=== PATIENT | male | born 1970 | race Caucasian/White ===

== ENCOUNTER 2016-11-13 16:06 | Emergency (ER) | payer OTHER, BC ==
[~2016-11-13] VITALS: Ht 177.8 cm; Wt 90.2 kg
[~2016-11-13 16:06] MED LIST: BACTRIM,SEPT1 TABLET PO; BENTYL20 MG PO; Bactrim,Septra DS 80 PO; CALCIUM 600 +1 EA11 PO; CALTRATE 6001 TABLE1 PO; CALTRATE PLUS1 EACH PO; CELEBREX200 MG PO; CHOLESTYRAMINE L4 GM PO; COREG CR40 MG PO; Ceftin PO; DAILY VALUE1 EACH PO; DAILY VITAMIN1 EAC8 PO; DILAUDID4 MG PO; EFFEXOR XR150 MG PO; EFFEXOR XR75 MG PO; ENDOCET 5-3251 EACH PO; EXALGO12 MG PO; EXALGO16 MG; EXALGO8 MG PO; Effexor PO; FIBER500 MG PO; FLEXERIL10 MG PO; FLOMAX0.4 MG PO; FORTAMET1000 M1 PO; HYDROCODON-ACE1 EAC7 PO; KEFLEX500 MG PO; LIPITOR20 MG PO; METFORMIN HCL500 M1 PO; Mylicon,Mylanta Gas, PO; NAPROSYN500 MG PO; NORCO 5/3251 TABLET PO; OMEPRAZOLE40 M1 PO; ONDANSETRON ODT4 MG PO; OPANA ER20 MG PR; Opana ER PO; PERCOCET 5/31 TABLET PO; PROMETHAZINE HC25 M1 PO; RESTORIL7.5 MG PO; ROXICODONE5 MG PO; SUCRALFATE1 GM PO; TYLENOL REGULA325 MG PO; ULTRAM; ULTRAM50 MG PO; VENLAFAXINE HC150 M1 PO; VIBRAMYCIN100 MG PO; VICODIN,LORT1 TABLET PO; ZOFRAN ODT4 MG PO; ZOFRAN4 MG PO
[2016-11-13 17:54] LABS: HEMATOCRIT 40.5 % (38.0-50.0); MCH 32.4 PG (29.0-34.0); MCHC 33.8 G/DL (30.0-36.0); MCV 95.7 FL (86-99); MEAN PLAT.VOLUME 10.1 uM^3 (9.0-12.4); PLATELET COUNT 203 K/uL (156-360); RBC DIS.WIDTH-CV 12.1 % (11.8-14.6); RBC DIS.WIDTH-SD 42.7 % (39-53); RED BLOOD COUNT 4.23 M/uL (4.00-5.50); WHITE BLOOD COUNT 6.7 K/uL (4.1-10.2)
[2016-11-13 18:04] LABS: CHLORIDE 109 mEq/L (99-109); POTASSIUM 4.8 mEq/L (3.7-5.4); SODIUM 144 mEq/L (136-147)
[2016-11-13 18:05] LABS: GLUCOSE 90 mg/dL (70-99)
[2016-11-13 18:07] LABS: ANION GAP 9 MEQ/L (2-14)
[2016-11-13 18:09] LABS: GFR ESTIMATE (CALCULATED) > 59 mL/min/
[2016-11-13 18:10] LABS: UREA NITROGEN (BUN) 15 mg/dL (9-23)
[2016-11-13 18:16] LABS: TROP-I INTERPRETATION NEGATIVE; TROPONIN-I < 0.01 ng/mL (0.0-0.30)
[2016-11-13 18:45] LABS: ADD MIUA? YES; BILIRUBIN NEGATIVE; BLOOD NEGATIVE; COLOR YELLOW ((YELLOW)); GLUCOSE (STRIP) NEGATIVE; KETONES 5; LEUKOCYTES TRACE; NITRITE NEGATIVE; PROTEIN (STRIP) NEGATIVE; SPECIFIC GRAVITY 1.018 (1.000-1.030)
[2016-11-13 18:53] LABS: AMPHETAMINE NEGATIVE (500 ng/mL); BARBITURATES NEGATIVE (200 ng/mL); BENZODIAZEPINES NEGATIVE (150 ng/mL); COCAINE NEGATIVE (150 ng/mL); INTERNAL CONTROLS VALID? YES; METHADONE NEGATIVE (200 ng/mL); METHAMPHETAMINE NEGATIVE (500 ng/mL); OPIATES (MORPHINE) NEGATIVE (100 ng/mL); OXYCODONE NEGATIVE (100 ng/mL); PHENCYCLIDINE NEGATIVE (25 ng/mL); PROPOXYPHENE NEGATIVE (300 ng/mL); THC CANNABINOIDS NEGATIVE (50 ng/mL); TRICYCLIC ANTIDEPRESSANTS NEGATIVE (300 ng/mL)
[2016-11-13 19:16] LABS: BACTERIA RARE /HPF; EPITHELIAL CELLS 1+ /HPF; MUCUS TRACE /LPF; RED BLOOD CELLS 0-5 /HPF (0-5)
[2016-11-13] MEDS ORDERED: MOTRIN800 MG PO (20:25)
[2016-11-13] MEDS ORDERED: FLEXERIL10 MG PO (20:25)
[2016-11-13 20:36] VITALS: BP 138/85
== END 2016-11-13 20:38 | disposition home or self-care (01) ==
LOC: EME 16:06
PROVIDERS: Physician Assistant
PROC: 0HQCXZZ Repair Left Upper Arm Skin, External Approach (ICD-10-PCS; principal; 2016-11-13)
DX: S20.229A Contusion of unspecified back wall of thorax, initial encounter (principal); S09.90XA Unspecified injury of head, initial encounter; S50.11XA Contusion of right forearm, initial encounter; S16.1XXA Strain of muscle, fascia and tendon at neck level, initial encounter; S41.112A Laceration without foreign body of left upper arm, initial encounter; W10.9XXA Fall (on) (from) unspecified stairs and steps, initial encounter; K21.9 Gastro-esophageal reflux disease without esophagitis; I10 Essential (primary) hypertension; F32.9 Major depressive disorder, single episode, unspecified; E11.9 Type 2 diabetes mellitus without complications; G89.29 Other chronic pain; M54.5 Low back pain
CPT/HCPCS: 70450; 71010; 72100; 72125; 72170; 73090; 80048; 81003; 84484; 85027; 93005; 99281; 99284; J3010

== ENCOUNTER 2017-10-31 16:14 | Emergency (ER) | payer OTHER, BC ==
[~2017-10-31] VITALS: Ht 177.8 cm; Wt 93.0 kg
[~2017-10-31 16:14] MED LIST changes: +MOTRIN800 MG PO
[2017-10-31 17:04] LABS: HEMATOCRIT 41.5 % (38.0-50.0); HEMOGLOBIN 14.5 G/DL (12.5-16.6); MCH 32.5 PG (29.0-34.0); MCHC 34.9 G/DL (30.0-36.0); PLATELET COUNT 149 K/uL (156-360); RBC DIS.WIDTH-CV 12.2 % (11.8-14.6); RED BLOOD COUNT 4.46 M/uL (4.00-5.50); WHITE BLOOD COUNT 7.7 K/uL (4.1-10.2)
[2017-10-31 17:06] LABS: ALBUMIN 4.2 g/dL (3.2-4.8)
[2017-10-31 17:07] LABS: CHLORIDE 101 mEq/L (99-109); SODIUM 135 mEq/L (136-147)
[2017-10-31 17:09] LABS: GLUCOSE 108 mg/dL (70-99); TOTAL PROTEIN 6.8 g/dL (6.4-8.3)
[2017-10-31 17:11] LABS: TOTAL BILIRUBIN 1.2 mg/dL (0.0-1.0)
[2017-10-31 17:12] LABS: ALKALINE PHOSPHATASE 82 IU/L (3-129)
[2017-10-31 17:13] LABS: GFR ESTIMATE (CALCULATED) > 59 mL/min/ (58.99-99999)
[2017-10-31 17:14] LABS: AST (GOT) 20 IU/L (2-34); DIRECT BILIRUBIN 0.5 mg/dL (0.0-0.3); UREA NITROGEN (BUN) 11 mg/dL (9-23)
[2017-10-31 17:16] LABS: ALT (GPT) 25 IU/L (3-49)
[2017-10-31 17:24] LABS: LIPASE 15 U/L (1.0-51.0)
[2017-10-31 17:27] LABS: APPEARANCE CLEAR ((CLEAR)); BILIRUBIN NEGATIVE; BLOOD NEGATIVE; COLOR YELLOW ((YELLOW)); GLUCOSE (STRIP) NEGATIVE; KETONES NEGATIVE; LEUKOCYTES SMALL; NITRITE NEGATIVE; PROTEIN (STRIP) NEGATIVE; SPECIFIC GRAVITY 1.021 (1.000-1.030)
[2017-10-31 17:35] LABS: BACTERIA NONE SEEN /HPF; EPITHELIAL CELLS 1+ /HPF; MUCUS TRACE /LPF; UCUL ADDED? YES; WHITE BLOOD CELLS 30-40 /HPF (0-5)
[2017-10-31] MEDS ORDERED: AUGMENTIN875 MG PO (20:12)
[2017-10-31 20:30] VITALS: BP 128/75
== END 2017-10-31 20:30 | disposition home or self-care (01) ==
LOC: EME 16:14
DX: J18.0 Bronchopneumonia, unspecified organism (principal); N39.0 Urinary tract infection, site not specified; Z87.442 Personal history of urinary calculi; R11.0 Nausea; Z98.84 Bariatric surgery status; Z88.1 Allergy status to other antibiotic agents; Z88.5 Allergy status to narcotic agent
CPT/HCPCS: 74176; 80048; 80076; 81003; 83690; 85027; 87086; 99281; 99284